=== PATIENT | female | born 1945 | race Caucasian/White ===

== ENCOUNTER 2016-10-05 09:23 | Outpatient (CLI) | payer MEDICARE, OTHER ==
--- NOTE | 2016-10-05 12:55 | XRAY Report ---
THREE-VIEW LEFT SHOULDER: 10/05/2016 CLINICAL INDICATION: Pain. FINDINGS: AP, oblique, scapular Y views of the left shoulder demonstrate no evidence of fracture or dislocation. Mild degenerative changes are present. No radiopaque foreign body is seen in the soft tissues. IMPRESSION: MILD DEGENERATIVE CHANGES. :9 JOB #: [id number] EXT JOB #:[id number]
--- NOTE | 2016-10-05 12:56 | XRAY Report ---
TWO-VIEW LEFT HUMERUS: 10/05/2016 CLINICAL INDICATION: Pain. FINDINGS: Frontal and lateral views of the left humerus demonstrate no evidence of fracture. No rad iopaque foreign body is seen in the soft tissues. IMPRESSION: NORMAL LEFT HUMERUS. JOB #: [id number] EXT JOB #:[id number]
== END 2016-10-05 09:24 | disposition home or self-care (01) ==
LOC: DI 09:23
PROVIDERS: ATTEND Physician Assistant Medical
DX: M19.012 Primary osteoarthritis, left shoulder (principal)

== ENCOUNTER 2016-12-21 08:31 | Outpatient (CLI) | payer MEDICARE, OTHER ==
[2016-12-21 09:00] LABS: BASOPHILS # (AUTO) 0.1 10^3/uL (0.0-0.1); BASOPHILS % (AUTO) 1.1 %; EOSINOPHILS # (AUTO) 0.3 10^3/uL (0.0-0.7); EOSINOPHILS % (AUTO) 3.1 %; HCT - HEMATOCRIT 38.4 % (37.0-47.0); HGB - HEMOGLOBIN 12.9 g/dL (12.0-16.0); LYMPHOCYTES # (AUTO) 1.4 10^3/uL (1.5-3.5); LYMPHOCYTES % (AUTO) 15.4 %; MEAN CORPUSCULAR HEMOGLOBIN 29.3 pg (27.0-31.0); MEAN CORPUSCULAR HGB CONC 33.5 g/dL (32.0-36.0); MEAN CORPUSCULAR VOLUME 87.3 fL (81.0-99.0); MEAN PLATELET VOLUME 7.3 fL (7.9-10.8); MONOCYTES # (AUTO) 0.6 10^3/uL (0.0-1.0); NEUTROPHILS # (AUTO) 6.6 10^3/uL (1.5-6.6); NEUTROPHILS % (AUTO) 73.4 %; RED CELL DISTRIBUTION WIDTH 12.6 % (12.0-15.0)
[2016-12-21 09:13] LABS: ALBUMIN/GLOBULIN RATIO 1.6 (1.0-2.2); BILIRUBIN,TOTAL 0.8 mg/dL (0.2-1.0); BUN - BLOOD UREA NITROGEN 25 mg/dL (6-20); CALCIUM 9.8 mg/dL (8.5-10.3); CARBON DIOXIDE - CO2 29 mmol/L (21-32); CHLORIDE 103 mmol/L (101-111); CHOL/HDL RATIO 3.6 (<4.4); CHOLESTEROL 196 mg/dL; CREATININE 0.8 mg/dL (0.4-1.0); GFR - MDRD 71 (>89); GLUCOSE 114 mg/dL (70-100); HDL CHOLESTEROL 54 mg/dL; LDL/HDL RATIO 2.3 (<4.4); POTASSIUM 3.7 mmol/L (3.5-5.0); SODIUM 139 mmol/L (135-145); TOTAL PROTEIN 6.8 g/dL (6.7-8.2); TRIGLYCERIDES 78 mg/dL; VLDL CHOLESTEROL 16 mg/dL
[2016-12-21 09:24] LABS: THYROID STIMULATING HORMONE 1.93 uIU/mL (0.34-5.60)
== END 2016-12-21 08:32 | disposition home or self-care (01) ==
LOC: LAB 08:31
PROVIDERS: ATTEND Physician Assistant Medical
DX: Z79.899 Other long term (current) drug therapy (principal); E55.9 Vitamin D deficiency, unspecified; M81.0 Age-related osteoporosis without current pathological fracture; Z86.39 Personal history of other endocrine, nutritional and metabolic disease; I10 Essential (primary) hypertension; Z11.59 Encounter for screening for other viral diseases; Z72.89 Other problems related to lifestyle
CPT/HCPCS: 36415; 80053; 80061; 82306; 83970; 84443; 85025; 86803

== ENCOUNTER 2016-12-30 10:08 | Outpatient (CLI) | payer MEDICARE, OTHER ==
--- NOTE | 2016-12-31 12:43 | Mammography Report ---
DIGITAL SCREENING MAMMOGRAM: 12/30/2016 CLINICAL INDICATION: A 71-year-old with family history of breast cancer for screening. COMPARISON: 12/2015, 12/2014, 10/2013, 12/2011, 12/2010, 12/2009 TECHNIQUE: Routine CC and MLO projections were obtained of the breasts. FINDINGS: The breasts again demonstrate heterogeneously dense fibroglandular parenchyma bilaterally. Coarse and punctate, typically benign calcifications are present. Intramammary lymph nodes are sta ble. No suspicious masses, clustered microcalcifications, or regions of architectural distortion are identified. IMPRESSION: BENIGN FINDINGS. RECOMMENDATION: Routine annual screening unless otherwise clinically indicated. BIRADS CATEGORY 2 - BENIGN FINDINGS. STANDARD QUALIFYING STATEMENTS 1. This examination was reviewed with the aid of Computer-Aided Detection (CAD). 2. A negative or benign imaging report should not delay biopsy if clinically suspicious findings are present. Consider surgical consultation if warranted. More than 5% of cancers are not identified by i maging. 3. Dense breasts may obscure an underlying neoplasm. JOB #: [id number] EXT JOB #:[id number]
== END 2016-12-30 10:09 | disposition home or self-care (01) ==
LOC: DI 10:08
PROVIDERS: ATTEND Physician Assistant Medical
DX: Z12.31 Encounter for screening mammogram for malignant neoplasm of breast (principal); Z80.3 Family history of malignant neoplasm of breast
CPT/HCPCS: 77067

== ENCOUNTER 2017-06-29 07:14 | Outpatient (CLI) | payer MEDICARE, OTHER ==
[2017-06-29 08:16] LABS: BILIRUBIN,URINE NEGATIVE (NEGATIVE); GLUCOSE, URINE (UA) NEGATIVE (NEGATIVE); KETONES,URINE (UA) NEGATIVE (NEGATIVE); LEUKOCYTE ESTERASE, URINE NEGATIVE (NEGATIVE); NITRITE,URINE NEGATIVE (NEGATIVE); OCCULT BLOOD,URINE NEGATIVE (NEGATIVE); PROTEIN,URINE NEGATIVE (NEGATIVE); UROBILINOGEN,URINE 0.2 (NORMAL) E.U./dL (NORMAL)
[2017-06-29 08:33] LABS: CLARITY,URINE CLEAR (CLEAR)
[2017-06-29 08:34] LABS: BACTERIA,URINE Rare /HPF (None Seen); RBC,URINE None Seen /HPF (0-5); SQUAMOUS EPITHELIAL CELL,UR RARE Squamous (<= Few)
--- NOTE | 2017-06-29 12:35 | Ultrasound Report ---
RETROPERITONEAL ULTRASOUND: 06/29/2017 HISTORY: Right ureterovesical junction stone in 2016, history of bilateral nephrolithiasis. Left lithotripsy 06/11/2017. TECHNIQUE: Real-time scanning by the lens marker with saved static images were reviewed. FINDINGS: Right kidney: 11.5 x 5.6 x 5.4 cm. There is an 1.5 cm in length right mid pole stone. There is a 5 mm in diameter right upper pole stone. There is a 2.2 x 1.3 cm inferior pole cyst. No evidence of obstruction, mass, or perinephric collection. Left kidney: 9.9 x 5.8 x 5.3 cm. No stones are seen. An 1.4 x 1.3 cm mid pole lateral cyst. No solid masses, perinephric collection, or hydronephrosis. Bilateral ureteral jets are seen. Prevoid bladder volume 49 mL. Postvoid bladder volume 27 mL. IMPRESSION: RIGHT NONOBSTRUCTING NEPHROLITHIASIS. SMALL BILATERAL RENAL CYSTS. SMALL POSTVOID RESIDUAL VOLUME. TD: 06/29/2017 12:34
== END 2017-06-29 07:15 | disposition home or self-care (01) ==
LOC: DI 07:14
PROVIDERS: ATTEND Physician Assistant
DX: N20.0 Calculus of kidney (principal); Q61.02 Congenital multiple renal cysts
CPT/HCPCS: 76770; 81001; 87086

== ENCOUNTER 2018-02-09 08:05 | Outpatient (CLI) | payer MEDICARE, OTHER ==
[2018-02-09 15:23] LABS: BASOPHILS % (AUTO) 0.4 %; EOSINOPHILS # (AUTO) 0.2 10^3/uL (0.0-0.7); EOSINOPHILS % (AUTO) 2.9 %; HGB - HEMOGLOBIN 13.6 g/dL (12.0-16.0); LYMPHOCYTES # (AUTO) 1.4 10^3/uL (1.5-3.5); LYMPHOCYTES % (AUTO) 17.3 %; MEAN CORPUSCULAR HEMOGLOBIN 29.4 pg (27.0-31.0); MEAN CORPUSCULAR HGB CONC 33.6 g/dL (32.0-36.0); MEAN CORPUSCULAR VOLUME 87.6 fL (81.0-99.0); MONOCYTES # (AUTO) 0.5 10^3/uL (0.0-1.0); MONOCYTES % (AUTO) 6.4 %; PLT - PLATELET COUNT 263 10^3/uL (130-450); RED BLOOD COUNT 4.63 10^6/uL (4.20-5.40); RED CELL DISTRIBUTION WIDTH 12.8 % (12.0-15.0); WHITE BLOOD COUNT 8.3 x10^3/uL (4.8-10.8)
[2018-02-09 15:39] LABS: ALBUMIN 4.1 g/dL (3.2-5.5); ALBUMIN/GLOBULIN RATIO 1.4 (1.0-2.2); ALKALINE PHOSPHATASE 80 IU/L (42-121); ALT ALANINE AMINOTRANSFERASE 20 IU/L (10-60); AST ASPARTATE AMINOTRANSFERASE 19 IU/L (10-42); BUN - BLOOD UREA NITROGEN 24 mg/dL (6-20); CALCIUM 9.6 mg/dL (8.5-10.3); CARBON DIOXIDE - CO2 28 mmol/L (21-32); CHLORIDE 98 mmol/L (101-111); CHOL/HDL RATIO 3.7 (<4.4); CHOLESTEROL 206 mg/dL; CREATININE 0.9 mg/dL (0.4-1.0); GFR - MDRD 62 (>89); GLUCOSE 95 mg/dL (70-100); HDL CHOLESTEROL 56 mg/dL; LDL CHOLESTEROL,CALCULATED 129 mg/dL; LDL/HDL RATIO 2.3 (<4.4); SODIUM 135 mmol/L (135-145); TOTAL PROTEIN 7.1 g/dL (6.7-8.2); VLDL CHOLESTEROL 21 mg/dL
[2018-02-09 16:14] LABS: HEMOGLOBIN A1C 0.53 g/dL; HEMOGLOBIN A1C % 5.4 % (4.6-6.2)
[2018-02-09 17:37] LABS: PLATELET ESTIMATE, MANUAL NORMAL (130-450,000) (NORMAL); PLATELET MORPHOLOGY NORMAL APPEARANCE (NORMAL); RBC MORPHOLOGY (MULTIPLE) NORMAL APPEARANCE (NORMAL)
== END 2018-02-09 23:59 | disposition home or self-care (01) ==
LOC: LAB.R 08:05
PROVIDERS: ATTEND Physician Assistant Medical
DX: Z79.899 Other long term (current) drug therapy (principal); E55.9 Vitamin D deficiency, unspecified; M81.0 Age-related osteoporosis without current pathological fracture; R73.9 Hyperglycemia, unspecified; I10 Essential (primary) hypertension
CPT/HCPCS: 80053; 80061; 82306; 83036; 83721; 85025

== ENCOUNTER 2018-12-05 02:24 | Emergency (ER) | payer MEDICARE, OTHER ==
--- NOTE | 2018-12-05 02:46 | ED Physician Documentation ---
PD HPI ABD PAIN - Stated complaint Stated Complaint: LEFT SIDE PAIN - Chief complaint Chief Complaint: Abd Pain - History obtained from History obtained from: Patient - History of Present Illness Timing - onset: How many hours ago (4) Timing - duration: Hours (4) Timing - details: Abrupt onset, Still present, Waxing and waning Quality: Cramping, Aching, Pain Location: LLQ Radiation: Left flank Improved by: No: Eating, Laying still, Position Worsened by: No: Eating, Moving, Position Associated symptoms: Nausea, Vomiting (couple of times). No: Fever, Diarrhea, Constipation, Dysuria Similar symptoms before: Diagnosis (she says feels similar to prior kidney stones. Has had several in the past.) Recently seen: Not recently seen Review of Systems Constitutional: denies: Fever, Chills Nose: denies: Rhinorrhea / runny nose, Congestion Throat: denies: Sore throat Respiratory: denies: Cough GI: reports: Abdominal Pain, Nausea, Vomiting. denies: Constipation, Diarrhea : denies: Dysuria, Frequency, Vaginal bleeding Skin: denies: Rash, Lesions Musculoskeletal: denies: Neck pain, Back pain Neurologic: denies: Focal weakness, Numbness, Near syncope PD PAST MEDICAL HISTORY - Past Medical History Cardiovascular: Hypertension Respiratory: None Endocrine/Autoimmune: None GI: None : Kidney stones HEENT: None Psych: None Musculoskeletal: None Derm: Psoriasis, Rosacea - Present Medications Home Medications: Ambulatory Orders Medication Instructions Recorded Confirmed Calcium Carbonate [Calcium] 500 mg PO DAILY 01/04/14 12/05/18 Cholecalciferol (Vitamin D3) 1,000 unit PO DAILY 01/04/14 12/05/18 [Vitamin D3] Losartan [Cozaar] 50 mg PO DAILY 01/04/14 12/05/18 Naproxen 500 mg PO BID #20 tablet 12/05/18 Ondansetron Odt [Zofran] 4 mg TL Q6H PRN #15 tablet 12/05/18 Oxycodone HCl/Acetaminophen 1 - 2 each PO Q6H PRN #20 tablet 12/05/18 [Percocet 5-325 mg Tablet] Tamsulosin [Flomax] 0.4 mg PO DAILY #5 capsule 12/05/18 - Allergies Allergies/Adverse Reactions: Allergies Allergy/AdvReac Type Severity Reaction Status Date / Time Sulfa (Sulfonamide AdvReac Rash Verified 12/05/18 02:35 Antibiotics) PD ED PE NORMAL - Vitals Vital signs reviewed: Yes - General General: Alert and oriented X 3, Well developed/nourished, Other (She appears uncomfortable in pain.) - HEENT HEENT: Pharynx benign - Neck Neck: Supple, no meningeal sign, No adenopathy - Cardiac Cardiac: RRR, No murmur - Respiratory Respiratory: Clear bilaterally - Abdomen Abdomen: Normal bowel sounds, Soft, Non distended, No organomegaly, Other (Some left-sided tenderness but no real guarding or percussion tenderness. There is some left CVA tenderness.) - Back Back: No spinal TTP - Derm Derm: Normal color, Warm and dry, No rash - Extremities Extremities: No edema, No calf tenderness / cord - Neuro Neuro: Alert and oriented X 3, No motor deficit, Normal speech Results - Vitals Vitals: Oxygen O2 Source Room air - Labs Labs: Laboratory Tests 12/05/18 12/05/18 03:25 03:25 WBC 12.0 H RBC 4.55 Hgb 13.4 Hct 39.8 MCV 87.5 MCH 29.5 MCHC 33.7 RDW 11.9 L Plt Count 228 MPV 9.3 Neut # (Auto) 10.2 H Lymph # (Auto) 1.0 L Eaton # (Auto) 0.6 Eos # (Auto) 0.1 Baso # (Auto) 0.1 Absolute Nucleated RBC 0.00 Nucleated RBC % 0.0 Sodium 141 Potassium 4.4 Chloride 105 Carbon Dioxide 26 Anion Gap 10.0 BUN 26 H Creatinine 1.0 Estimated GFR (MDRD) 54 L Glucose 149 H Calcium 10.2 Total Bilirubin 0.7 AST 19 ALT 16 Alkaline Phosphatase 83 Total Protein 7.1 Albumin 4.1 Globulin 3.0 Albumin/Globulin Ratio 1.4 Lipase 49 PD MEDICAL DECISION MAKING - ED course Complexity details: reviewed results (normal tests. No imaging done, presumed stone.), re-evaluated patient (She is feeling much improved with medications.), considered differential (Reasonable to assume a kidney stone being passed.), d/w patient Departure - Departure Disposition: 01 Home, Self Care Clinical Impression: Acute left flank pain, Renal colic Condition: Stable Record reviewed to determine appropriate education?: Yes Instructions: ED Stone Renal W Colic Follow-Up: Reena Mccormick ARNP, DYE AUTOMATION OPERATOR-C [Primary Care Provider] - Prescriptions: Naproxen 500 mg PO BID #20 tablet Ondansetron Odt [Zofran] 4 mg TL Q6H PRN #15 tablet PRN Reason: Nausea / Vomiting Oxycodone HCl/Acetaminophen [Percocet 5-325 mg Tablet] 1 - 2 each PO Q6H PRN #20 tablet PRN Reason: pain Tamsulosin [Flomax] 0.4 mg PO DAILY #5 capsule Comments: Stay well-hydrated. Use an anti-inflammatory such as naproxen twice daily with food for the next several days to week or so. Add Tylenol or Percocet if needed for pain. Ondansetron if needed for nausea. Presume this is a small kidney stone that you are passing. Recheck if not improved over the next 2 to 3 days or if not well symptom controlled with medication. Discharge Date/Time: 12/05/18 04:44
[2018-12-05] MEDS ORDERED: ONDANSETRON 4 MG/2 ML VIAL IVP STA (02:59)
[2018-12-05] MEDS ORDERED: HYDROmorphone 2 MG/ML VIAL IVP STA (02:59)
[2018-12-05] MEDS ORDERED: SODIUM CHLORIDE 0.9% 1,000 ML IV ONE (02:59)
[2018-12-05] MEDS ORDERED: KETOROLAC 30 MG/ML VIAL IVP STA (02:59)
[2018-12-05 03:37] LABS: BASOPHILS # (AUTO) 0.1 10^3/uL (0.0-0.1); BASOPHILS % (AUTO) 0.4 %; EOSINOPHILS # (AUTO) 0.1 10^3/uL (0.0-0.7); EOSINOPHILS % (AUTO) 0.8 %; HGB - HEMOGLOBIN 13.4 g/dL (12.0-16.0); LYMPHOCYTES % (AUTO) 7.9 %; MEAN CORPUSCULAR HEMOGLOBIN 29.5 pg (27.0-31.0); MEAN CORPUSCULAR HGB CONC 33.7 g/dL (32.0-36.0); MEAN CORPUSCULAR VOLUME 87.5 fL (81.0-99.0); MEAN PLATELET VOLUME 9.3 fL (7.9-10.8); MONOCYTES # (AUTO) 0.6 10^3/uL (0.0-1.0); MONOCYTES % (AUTO) 5.2 %; NEUTROPHILS # (AUTO) 10.2 10^3/uL (1.5-6.6); NEUTROPHILS % (AUTO) 85.3 %; PLT - PLATELET COUNT 228 10^3/uL (130-450); RED BLOOD COUNT 4.55 10^6/uL (4.20-5.40); RED CELL DISTRIBUTION WIDTH 11.9 % (12.0-15.0)
[2018-12-05 03:50] LABS: ALBUMIN 4.1 g/dL (3.2-5.5); ALBUMIN/GLOBULIN RATIO 1.4 (1.0-2.2); BILIRUBIN,TOTAL 0.7 mg/dL (0.2-1.0); CALCIUM 10.2 mg/dL (8.5-10.3); TOTAL PROTEIN 7.1 g/dL (6.7-8.2)
[2018-12-05] MEDS ORDERED: ONDANSETRON ODT 4 MG Prepack 2 TL PRN (04:19)
[2018-12-05] MEDS ORDERED: oxyCODONE/ACET 5/325 Prepack 4 PO STA (04:19)
[2018-12-05 04:20] VITALS: BP 124/78
== END 2018-12-05 04:44 | disposition home or self-care (01) ==
LOC: ED 02:24
DX: N23 Unspecified renal colic (principal); I10 Essential (primary) hypertension; Z87.442 Personal history of urinary calculi
CPT/HCPCS: 36415; 80053; 83690; 85025; 96361; 96374; 99284; J1170

== ENCOUNTER 2018-12-06 21:02 | Emergency (ER) | payer MEDICARE, OTHER ==
--- NOTE | 2018-12-06 21:21 | ED Physician Documentation ---
PD HPI ABD PAIN - Stated complaint Stated Complaint: BK PX/VOMITING - Chief complaint Chief Complaint: Abd Pain - History obtained from History obtained from: Patient - History of Present Illness Timing - onset: How many days ago (2-3) Timing - details: Abrupt onset, Still present (She had left flank to abdominal pain consistent with prior kidney stones. She was seen yesterday in the ER and given some pain medicines and then prescriptions for Zofran and Percocet. She states she was having nausea and vomiting even prior to taking these tablets from the pressure in the kidney and the pain in general.), Waxing and waning Quality: Cramping, Aching, Pain Location: LLQ (She states in the last 2 to 3 hours the pain had moved from more primarily in the back to now both back and lower abdominal area. It is associated with nausea and vomiting. She tried some pain medicines she was prescribed yesterday but states she had emesis of them without really absorption time. Still hurting quite badly and so here for evaluation.) Radiation: Left flank Improved by: No: Laying still, Vomiting Worsened by: Moving. No: Breathing Associated symptoms: Nausea, Vomiting. No: Fever, Hematemesis, Diarrhea, Weight loss Similar symptoms before: Diagnosis (kidney stones) Recently seen: Emergency Dept (yesterday for same, with less pain at that time.) Review of Systems Unable to obtain: Other (less conversant due to abd pain) Constitutional: denies: Fever, Chills, Myalgias Nose: denies: Rhinorrhea / runny nose, Congestion Cardiac: denies: Chest pain / pressure GI: reports: Abdominal Pain, Nausea, Vomiting. denies: Constipation, Diarrhea : denies: Dysuria, Frequency Skin: denies: Rash, Lesions PD PAST MEDICAL HISTORY - Past Medical History Cardiovascular: Hypertension Respiratory: None Endocrine/Autoimmune: None GI: None : Kidney stones HEENT: None Psych: None Musculoskeletal: None Derm: Psoriasis, Rosacea - Present Medications Home Medications: Ambulatory Orders Medication Instructions Recorded Confirmed Calcium Carbonate [Calcium] 500 mg PO DAILY 01/04/14 12/05/18 Cholecalciferol (Vitamin D3) 1,000 unit PO DAILY 01/04/14 12/05/18 [Vitamin D3] Losartan [Cozaar] 50 mg PO DAILY 01/04/14 12/05/18 Ondansetron Odt [Zofran] 4 mg TL Q6H PRN #15 tablet 12/05/18 Oxycodone HCl/Acetaminophen 1 - 2 each PO Q6H PRN #20 tablet 12/05/18 [Percocet 5-325 mg Tablet] RX: Naproxen 500 mg PO BID #20 tablet 12/05/18 Tamsulosin [Flomax] 0.4 mg PO DAILY #5 capsule 12/05/18 Hydrocodone/Acetaminophen 1 each PO Q4H PRN #20 tablet 12/06/18 [Hydrocodon-Acetaminoph 7.5-325] - Allergies Allergies/Adverse Reactions: Allergies Allergy/AdvReac Type Severity Reaction Status Date / Time Sulfa (Sulfonamide AdvReac Rash Verified 12/06/18 21:17 Antibiotics) - Social History Does the pt smoke?: No Smoking Status: Never smoker PD ED PE NORMAL - Vitals Vital signs reviewed: Yes - General General: Alert and oriented X 3, Well developed/nourished, Other (Appears very uncomfortable and pale and holding left side of her abdomen. She is awake and conversant.) - HEENT HEENT: Pharynx benign - Neck Neck: Supple, no meningeal sign, No adenopathy - Cardiac Cardiac: RRR, No murmur - Respiratory Respiratory: Clear bilaterally - Abdomen Abdomen: Soft, Non distended, No organomegaly, Other (There is tenderness of the left lower abdomen and left mid abdomen and also left CVA tenderness. There is no guarding of the areas..). No: Normal bowel sounds (diminished) - Female Female : Deferred - Rectal Rectal: Deferred - Derm Derm: Normal color, Warm and dry - Extremities Extremities: No tenderness to palpate, Normal ROM s pain - Neuro Neuro: Alert and oriented X 3, No motor deficit, No sensory deficit Results - Vitals Vitals: Vital Signs - 24 hr 12/06/18 12/06/18 12/06/18 21:16 21:55 22:21 Temperature 36.3 C L Heart Rate 78 76 67 Respiratory 22 20 15 Rate Blood Pressure 130/78 140/68 H 144/77 H O2 Saturation 100 98 100 12/06/18 12/06/18 12/07/18 22:47 23:21 00:05 Temperature Heart Rate 71 75 73 Respiratory 16 17 16 Rate Blood Pressure 156/72 H 137/65 H 130/65 O2 Saturation 98 98 96 Oxygen O2 Source Room air - Rads (name of study) KUB CT Radiology: Prelim report reviewed, EMP read contemporaneously (6 mm stone in the proximal left ureter with only mild hydronephrosis. No other acute processes seen.), See rad report PD MEDICAL DECISION MAKING - ED course Complexity details: reviewed results, re-evaluated patient (Improved with IV pain medications as well as antiemetic and lidocaine. She is still having some pain in the area. She was given a little bit more pain medicine and antiemetics. This point she feels comfortable going home to rest.), considered differential, d/w patient ED course: It was hard to tell if she has have nausea and vomiting because of the pain itself or from the pain medication she received at the clinic. We can treat to a different pain medicine in case it was the oxycodone augmenting the nausea and vomiting. She does however have a large enough stone that we will consider lithotripsy for it. Departure - Departure Disposition: 01 Home, Self Care Clinical Impression: Left sided abdominal pain, Kidney stone on left side Condition: Stable Record reviewed to determine appropriate education?: Yes Instructions: ED Stone Renal W Colic Follow-Up: Reena Mccormick ARNP, SL[employer] DEPILER OPERATOR-C [Primary Care Provider] - Jose Nicole MD [Provider Admit Priv/Credential] - Prescriptions: Hydrocodone/Acetaminophen [Hydrocodon-Acetaminoph 7.5-325] 1 each PO Q4H PRN #20 tablet PRN Reason: Pain Comments: Ibuprofen or naproxen twice daily with food. Continue the previous tamsulosin daily. Ondansetron if needed for nausea and take it 20 minutes or so before the pain medicines. You could try hydrocodone instead of the oxycodone for the pain medicine and see if you are less nauseated with it. The nausea and vomiting may also have just been from the pain as well. Follow-up with urology. There is one who has office hours in [place]. Call for an appointment. Return if worse pain again despite the above medications. Discharge Date/Time: 12/07/18 00:18
[2018-12-06] MEDS ORDERED: ONDANSETRON 4 MG/2 ML VIAL IVP STA (21:32)
[2018-12-06] MEDS ORDERED: KETOROLAC 30 MG/ML VIAL IVP STA (21:32)
[2018-12-06] MEDS ORDERED: LIDOCAINE-MPF 2% 6 ML in SODIUM CHLORIDE 0.9% 50 ML IV STA (21:32)
[2018-12-06] MEDS ORDERED: MORPHINE 10 MG/ML VIAL IVP STA (21:34)
[2018-12-06] MEDS ORDERED: fentaNYL 100 MCG/2 ML VIAL IVP STA (23:04)
[2018-12-06] MEDS ORDERED: DEXAMETHASONE 10 MG/ML VIAL IVP STA (23:05)
[2018-12-06] MEDS ORDERED: PROMETHAZINE INJ 12.5 MG in SODIUM CHLORIDE 0.9% 50 ML IV STA (23:05)
[2018-12-06] MEDS ORDERED: ACETAMINOPHEN 1,000 MG/100 ML 100 ML IV STA (23:05)
--- NOTE | 2018-12-06 23:09 | CT Report ---
Reason: left flank/abd pain, h/o stones Procedure Date: 12/06/2018 Accession Number: [id number] / [id number] Procedure: CT - Abdomen/Pelvis WO CPT Code: FULL RESULT: EXAM: CT ABDOMEN AND PELVIS (CT KUB) EXAM DATE: 12/06/2018 10:16 PM CLINICAL HISTORY: Left-sided abdominal and flank pain. History of kidney stones. COMPARISONS: ABDOMEN/PELVIS W/O 10/29/2015 8:24 AM. TECHNIQUE: Routine axial helical CT imaging was performed through the abdomen and pelvis without IV contrast. Reconstructions: Coronal and sagittal. In accordance with CT protocol optimization, one or more of the following dose reduction techniques were utilized for this exam: automated exposure control, adjustment of mA and/or KV based on patient size, or use of iterative reconstructive technique. FINDINGS: Right Kidney/Ureter: There are two intrarenal stones within the right mid kidney. These measure up to 7 mm in maximal diameter. The dominant stone is similar to the prior study. There is a new anteriorly located right lower kidney stone. Incipient right lower kidney stone also has developed since the prior study. There is an exophytic abnormality arising from the lateral portion of the right lower kidney, increased in size from the prior study. This measures 20 HU in density, difficult to characterize on this exam. This lesion measures 2.1 cm (image 82 series 5). Left Kidney/Ureter: Contour deformity within the left lower kidney is noted laterally measuring 2.7 x 1.7 cm (image 76 series 5). Heterogeneous low-density abnormality is noted at this location. There are three tiny incipient stones within the left lower kidney. No left-sided hydronephrosis is demonstrated. There is a left proximal ureteral stone, measuring 6.4 mm (image 45 series 7). This measures 659 Hounsfield units in density. Abdominal Solid Organs: Small heterogeneous low-density lesion is seen within the anterior portion of liver segment-8/4A, better seen compared to the prior study. This measures 1.3 cm (image 36 series 5). This is difficult to fully characterize. There are at least two smaller similar lesions seen within the left hepatic lobe, segment-2 and 3 (image 56 series 5). These measure up to 1.7 cm. A few additional subtle subcentimeter low-density abnormalities also suspected within the right hepatic lobe. These lesions are difficult to fully characterize on this noncontrast study. There are multiple gallstones. No definite evidence of acute cholecystitis noted on this examination. Phrygian cap is present. Bowel: Abnormal thickening as well as pericolonic stranding seen involving the distal portion of the ascending colon, transverse colon, as well as the descending colon. Sigmoid colon appears to be spared. There is a small amount of liquid stool and fecal matter within the colon. Appendix: Normal. Lymph Nodes: No definite pathologic lymphadenopathy. Fluid: No significant ascites. Vasculature: Normal caliber aorta. Pelvis: No bladder stones. Visualized pelvic organs are without significant abnormality within the confines of a noncontrast exam. Bones: No definite suspicious bony lesions demonstrated. However, bones are at least moderately osteopenic. This reduces exam sensitivity and specificity for detection of subtle bony lesions and/or fractures. Lower Chest: No significant lung base consolidation or effusion. IMPRESSION: 1. There is a 6.4 mm left proximal ureteral stone without significant hydronephrosis. 2. There are three incipient stones within the left lower kidney. There are two stones within the right mid and lower kidney measuring up to 7 mm. Incipient right lower kidney stone also noted. 3. Bilateral indeterminate renal lesions arising from the lower pole, for which further assessment recommended with a nonemergent outpatient ultrasound. 4. Colitis involving the distal half of the ascending colon, transverse colon, as well as the descending colon. This is probably infectious in etiology. 5. Gallstones without acute cholecystitis noted. [facility]
[2018-12-06] MEDS ORDERED: HYDROcod/ACET 5/325 Prepack 4 PO STA (23:12)
[2018-12-06] MEDS ORDERED: PROCHLORPERAZINE 10 MG/2 ML VIAL IVP STA (23:33)
[2018-12-07 00:07] VITALS: BP 130/65
== END 2018-12-07 00:18 | disposition home or self-care (01) ==
LOC: ED 21:02
DX: N20.2 Calculus of kidney with calculus of ureter (principal); R11.2 Nausea with vomiting, unspecified; I10 Essential (primary) hypertension; Z87.442 Personal history of urinary calculi
CPT/HCPCS: 74176; 96374; 96375; 99284; J0131; J7040

== ENCOUNTER 2018-12-31 09:26 | Emergency (ER) | payer MEDICARE, OTHER ==
[2018-12-31] MEDS ORDERED: SODIUM CHLORIDE 0.9% 1,000 ML IV ONE (09:59)
[2018-12-31] MEDS ORDERED: ONDANSETRON 4 MG/2 ML VIAL IVP STA (09:59)
[2018-12-31 10:00] LABS: BILIRUBIN,URINE NEGATIVE (NEGATIVE); GLUCOSE, URINE (UA) NEGATIVE (NEGATIVE); KETONES,URINE (UA) 15 mg/dL (NEGATIVE); LEUKOCYTE ESTERASE, URINE SMALL (NEGATIVE); NITRITE,URINE NEGATIVE (NEGATIVE); OCCULT BLOOD,URINE TRACE-INTA (NEGATIVE); PROTEIN,URINE NEGATIVE (NEGATIVE); UROBILINOGEN,URINE 0.2 (NORMAL) E.U./dL (NORMAL)
[2018-12-31 10:02] LABS: CLARITY,URINE HAZY (CLEAR)
[2018-12-31 10:11] LABS: BASOPHILS % (AUTO) 0.5 %; EOSINOPHILS # (AUTO) 0.2 10^3/uL (0.0-0.7); EOSINOPHILS % (AUTO) 3.3 %; HGB - HEMOGLOBIN 13.6 g/dL (12.0-16.0); LYMPHOCYTES # (AUTO) 1.1 10^3/uL (1.5-3.5); LYMPHOCYTES % (AUTO) 15.3 %; MEAN CORPUSCULAR HEMOGLOBIN 28.8 pg (27.0-31.0); MEAN CORPUSCULAR HGB CONC 32.5 g/dL (32.0-36.0); MEAN CORPUSCULAR VOLUME 88.6 fL (81.0-99.0); MONOCYTES # (AUTO) 0.5 10^3/uL (0.0-1.0); MONOCYTES % (AUTO) 6.8 %; NEUTROPHILS # (AUTO) 5.4 10^3/uL (1.5-6.6); NEUTROPHILS % (AUTO) 73.7 %; PLT - PLATELET COUNT 267 10^3/uL (130-450); RED BLOOD COUNT 4.73 10^6/uL (4.20-5.40); RED CELL DISTRIBUTION WIDTH 12.1 % (12.0-15.0); WHITE BLOOD COUNT 7.4 x10^3/uL (4.8-10.8)
--- NOTE | 2018-12-31 10:15 | ED Physician Documentation ---
History of Present Illness - Stated complaint Stated Complaint: FEMALE /BACK PX - Chief complaint Chief Complaint: General - History obtained from History obtained from: Patient, Family - History of Present Illness Timing: Yesterday Pain level max: 8 Pain level now: 6 - Additonal information Additional information: 73-year-old female with a long history of renal and ureteral stones. States started having left flank pain again last night. Currently feels better. Some nausea but no vomiting. No fevers. Has not seen a urologist yet. Nothing makes it better or worse. Review of Systems Constitutional: denies: Fever, Chills Throat: denies: Sore throat Cardiac: denies: Chest pain / pressure Respiratory: denies: Cough GI: denies: Vomiting, Diarrhea : denies: Dysuria, Frequency, Hesitancy Skin: denies: Rash Musculoskeletal: denies: Neck pain, Back pain Neurologic: denies: Headache PD PAST MEDICAL HISTORY - Past Medical History Cardiovascular: Hypertension Respiratory: None Endocrine/Autoimmune: None GI: None : Kidney stones HEENT: None Psych: None Musculoskeletal: None Derm: Psoriasis, Rosacea - Present Medications Home Medications: Ambulatory Orders Medication Instructions Recorded Confirmed Calcium Carbonate [Calcium] 500 mg PO DAILY 01/04/14 12/31/18 Cholecalciferol (Vitamin D3) 1,000 unit PO DAILY 01/04/14 12/31/18 [Vitamin D3] Losartan [Cozaar] 50 mg PO DAILY 01/04/14 12/31/18 Tamsulosin [Flomax] 0.4 mg PO DAILY #5 capsule 12/05/18 12/31/18 Ciprofloxacin HCl [Cipro] 500 mg PO BID #20 tablet 12/31/18 Tamsulosin [Flomax] 0.4 mg PO DAILY #10 capsule 12/31/18 oxyCODONE [Roxicodone] 5 - 10 mg PO Q6H PRN #14 tablet 12/31/18 traMADol [Ultram] 50 mg PO Q6H PRN #20 tablet 12/31/18 - Allergies Allergies/Adverse Reactions: Allergies Allergy/AdvReac Type Severity Reaction Status Date / Time Sulfa (Sulfonamide AdvReac Rash Verified 12/06/18 21:17 Antibiotics) - Social History Does the pt smoke?: No Smoking Status: Never smoker Does the pt drink ETOH?: No Does the pt have substance abuse?: No - POLST Patient has POLST: No PD ED PE NORMAL - Vitals Vital signs reviewed: Yes - General General: Alert and oriented X 3, No acute distress - HEENT HEENT: Moist mucous membranes - Neck Neck: Supple, no meningeal sign - Cardiac Cardiac: RRR - Respiratory Respiratory: No respiratory distress, Clear bilaterally - Abdomen Abdomen: Soft, Non tender, Non distended - Back Back: No CVA TTP, No spinal TTP - Derm Derm: Warm and dry - Neuro Neuro: Alert and oriented X 3 - Psych Psych: Normal mood, Normal affect Results - Vitals Vitals: Vital Signs - 24 hr 12/31/18 12/31/18 12/31/18 09:31 10:05 12:50 Temperature 36.4 C L Heart Rate 80 68 63 Respiratory 14 18 18 Rate Blood Pressure 134/79 H 108/73 117/72 O2 Saturation 100 97 98 Oxygen O2 Source Room air - Labs Labs: Laboratory Tests 12/31/18 12/31/18 12/31/18 09:40 09:45 09:45 WBC 7.4 RBC 4.73 Hgb 13.6 Hct 41.9 MCV 88.6 MCH 28.8 MCHC 32.5 RDW 12.1 Plt Count 267 MPV 9.0 Neut # (Auto) 5.4 Lymph # (Auto) 1.1 L Lea # (Auto) 0.5 Eos # (Auto) 0.2 Baso # (Auto) 0.0 Absolute Nucleated RBC 0.00 Nucleated RBC % 0.0 Sodium 143 Potassium 3.7 Chloride 107 Carbon Dioxide 26 Anion Gap 10.0 BUN 22 H Creatinine 1.1 H Estimated GFR (MDRD) 49 L Glucose 124 H Calcium 9.7 Total Bilirubin 0.9 AST 19 ALT 18 Alkaline Phosphatase 77 Total Protein 7.7 Albumin 4.3 Globulin 3.4 Albumin/Globulin Ratio 1.3 Lipase 42 Urine Color YELLOW Urine Clarity HAZY Urine pH 6.0 Ur Specific [place] 1.010 Urine Protein NEGATIVE Urine Glucose (UA) NEGATIVE Urine Ketones 15 H Urine Occult Blood TRACE-INTA Urine Nitrite NEGATIVE Urine Bilirubin NEGATIVE Urine Urobilinogen 0.2 (NORMAL) Ur Leukocyte Esterase SMALL H Urine RBC 0-5 Urine WBC 0-3 Urine WBC Clumps Ur Squamous Epith Cells MOD Squamous H Urine Bacteria Moderate H Ur Microscopic Review INDICATED Urine Culture Comments NOT INDICATED 12/31/18 11:12 WBC RBC Hgb Hct MCV MCH MCHC RDW Plt Count MPV Neut # (Auto) Lymph # (Auto) Lea # (Auto) Eos # (Auto) Baso # (Auto) Absolute Nucleated RBC Nucleated RBC % Sodium Potassium Chloride Carbon Dioxide Anion Gap BUN Creatinine Estimated GFR (MDRD) Glucose Calcium Total Bilirubin AST ALT Alkaline Phosphatase Total Protein Albumin Globulin Albumin/Globulin Ratio Lipase Urine Color YELLOW Urine Clarity CLEAR Urine pH 6.0 Ur Specific [place] 1.015 Urine Protein NEGATIVE Urine Glucose (UA) NEGATIVE Urine Ketones NEGATIVE Urine Occult Blood SMALL H Urine Nitrite NEGATIVE Urine Bilirubin NEGATIVE Urine Urobilinogen 0.2 (NORMAL) Ur Leukocyte Esterase TRACE H Urine RBC 0-5 Urine WBC 6-10 H Urine WBC Clumps PRESENT Ur Squamous Epith Cells NONE SEEN Urine Bacteria Rare Ur Microscopic Review INDICATED Urine Culture Comments INDICATED - Rads (name of study) CT abd/pelvis Radiology: Prelim report reviewed, EMP read contemporaneously, See rad report (Bilateral renal stones are present, with interval development of mild left sided hydroureteronephrosis secondary to round stone at the left UVJ measuring 4.6 mm. Additional bilateral renal pelvic stones are seen, with right nonobstructing stone measuring up to 7.8 mm. 2. Interval resolution of previously noted colitis. Residual diverticulosis otherwise seen. 3. Stable appearance of hypodensities noted in the liver and kidneys. Follow-up recommended for previously described exophytic renal lesions. 4. Mild bony dege nerative changes seen. ) PD MEDICAL DECISION MAKING - ED course Complexity details: reviewed results, re-evaluated patient, considered differential, d/w patient ED course: 73-year-old female with a left UVJ stone. She has a UTI as well. No fever. No leukocytosis. Given Rocephin IV. Discussed the case with urology, Dr. Hernandez who will see the patient tomorrow. She will return if she worsens. Patient counseled regarding signs and symptoms for which I believe and urgent re-evaluation would be necessary. Patient with good understanding of and agreement to plan and is comfortable going home at this time This document was made in part using voice recognition software. While efforts are made to proofread this document, sound alike and grammatical errors may occur. Departure - Departure Disposition: 01 Home, Self Care Clinical Impression: Kidney stone on left side UTI (urinary tract infection) Qualifiers: Urinary tract infection type: acute cystitis Hematuria presence: without hematuria Qualified Code(s): N30.00 - Acute cystitis without hematuria Condition: Good Instructions: ED UTI Cystitis Female, ED Stone Renal W Colic Follow-Up: Román Hernandez MD [Physician No Access] - Tomorrow Prescriptions: Ciprofloxacin HCl [Cipro] 500 mg PO BID #20 tablet oxyCODONE [Roxicodone] 5 - 10 mg PO Q6H PRN #14 tablet PRN Reason: Abdominal Pain Tamsulosin [Flomax] 0.4 mg PO DAILY #10 capsule traMADol [Ultram] 50 mg PO Q6H PRN #20 tablet PRN Reason: Abdominal Pain Comments: Return if you worsen. Follow-up with Dr. Hernandez in the morning. Call his office first thing in the morning. I spoke with him tonight. Do not eat or drink after midnight tonight. Go to [facility] ER if you develop fevers, vomiting or uncontrolled pain as he is [employer] there tonight. Take the tramadol every 6 hours around the clock with 650mg of tylenol. Do not drink alcohol or drive while on narcotic pain medicine. Note that many narcotic pain relievers also contain tylenol/acetaminophen. Please ensure that your total dose of acetaminophen from all sources does not exceed 3 grams (3000mg) per day. You may constipated on this medication, take a stool softener such as "Colace" twice a day while you are on it. Also recommend a [id number]-icn-ufgcpac laxative such as senna or MiraLAX any day that you do not have a bowel movement. If you received narcotic pain medication in the emergency department, do not drive or operate machinery for the next 24 hours. Discharge Date/Time: 12/31/18 13:36
[2018-12-31 10:24] LABS: BACTERIA,URINE Moderate /HPF (None Seen); RBC,URINE 0-5 /HPF (0-5); SQUAMOUS EPITHELIAL CELL,UR MOD Squamous (<= Few)
[2018-12-31 10:27] LABS: ALBUMIN 4.3 g/dL (3.2-5.5); ALBUMIN/GLOBULIN RATIO 1.3 (1.0-2.2); BILIRUBIN,TOTAL 0.9 mg/dL (0.2-1.0); CALCIUM 9.7 mg/dL (8.5-10.3); CREATININE 1.1 mg/dL (0.4-1.0); TOTAL PROTEIN 7.7 g/dL (6.7-8.2)
[2018-12-31] MEDS ORDERED: IOVERSOL 320 100 ML VIAL IVP ONE ×2 (11:03→11:06)
[2018-12-31 11:36] LABS: BILIRUBIN,URINE NEGATIVE (NEGATIVE); GLUCOSE, URINE (UA) NEGATIVE (NEGATIVE); KETONES,URINE (UA) NEGATIVE (NEGATIVE); LEUKOCYTE ESTERASE, URINE TRACE (NEGATIVE); NITRITE,URINE NEGATIVE (NEGATIVE); OCCULT BLOOD,URINE SMALL (NEGATIVE); PROTEIN,URINE NEGATIVE (NEGATIVE); UROBILINOGEN,URINE 0.2 (NORMAL) E.U./dL (NORMAL)
[2018-12-31 11:45] LABS: CLARITY,URINE CLEAR (CLEAR)
[2018-12-31 11:56] LABS: BACTERIA,URINE Rare /HPF (None Seen); RBC,URINE 0-5 /HPF (0-5); SQUAMOUS EPITHELIAL CELL,UR NONE SEEN (<= Few); WBC CLUMPS,URINE PRESENT
--- NOTE | 2018-12-31 12:17 | CT Report ---
Reason: L sided abd pain Procedure Date: 12/31/2018 Accession Number: [id number] / [id number] Procedure: CT - Abdomen/Pelvis W CPT Code: FULL RESULT: EXAM: CT ABDOMEN AND PELVIS EXAM DATE: 12/31/2018 11:14 AM. CLINICAL HISTORY: Left-sided abdominal pain. COMPARISONS: ABDOMEN/PELVIS W/O 12/06/2018 10:09 PM ABD/PEL 01/10/2008 11:55 AM. TECHNIQUE: Routine helical CT imaging was performed through the abdomen and pelvis. IV contrast: OPTI 320 90ML. Enteric contrast: No. Reconstructions: Coronal and sagittal. In accordance with CT protocol optimization, one or more of the following dose reduction techniques were utilized for this exam: automated exposure control, adjustment of mA and/or KV based on patient size, or use of iterative reconstructive technique. FINDINGS: Lung Bases: Patchy atelectatic changes seen at the lung bases. Liver: Stable hypoattenuation in the liver, possibly cysts. No obvious enhancing mass noted. Gallbladder/Bile Ducts: Stable cholelithiasis. No gross evidence of acute cholecystitis seen. Spleen: Normal. Pancreas: Normal. Adrenal Glands: Normal. Kidneys: Bilateral renal stones are again noted, with stable appearance of exophytic possible cystic lesion in the right lower pole. There is newly developed left mild hydroureteronephrosis, secondary to a round stone at the left UVJ, measuring 4.6 mm. Largest nonobstructing stone noted about the right kidney is noted to measure 7.8 mm. Peritoneal Cavity/Bowel: There is colonic diverticulosis noted without evidence of acute diverticulitis. No free fluid, free air or adenopathy. No masses or acute inflammatory process. Appendix is not well seen. Previously noted colitis has resolved. Pelvic Organs: Normal. The bladder and visualized pelvic organs are within normal limits. Vasculature: No aneurysms or other significant abnormality. Bones: Mild bony degenerative changes seen. Other: None. IMPRESSION: 1. Bilateral renal stones are present, with interval development of mild left sided hydroureteronephrosis secondary to round stone at the left UVJ measuring 4.6 mm. Additional bilateral renal pelvic stones are seen, with right nonobstructing stone measuring up to 7.8 mm. 2. Interval resolution of previously noted colitis. Residual diverticulosis otherwise seen. 3. Stable appearance of hypodensities noted in the liver and kidneys. Follow-up recommended for previously described exophytic renal lesions. 4. Mild bony degenerative changes seen. RADIA
[2018-12-31] MEDS ORDERED: cefTRIAXone 1 GM VIAL IVP STA (12:38)
[2018-12-31 12:51] VITALS: BP 117/72
== END 2018-12-31 13:36 | disposition home or self-care (01) ==
LOC: ED 09:26
DX: N13.2 Hydronephrosis with renal and ureteral calculous obstruction (principal); Z87.442 Personal history of urinary calculi; N30.00 Acute cystitis without hematuria; I10 Essential (primary) hypertension
CPT/HCPCS: 36415; 51701; 74177; 80053; 81001; 83690; 85025; 87086; 96361; 96374; 96375; 99284; Q9967; 81003; 82247; 82248

== ENCOUNTER 2019-01-19 07:58 | Outpatient (CLI) | payer MEDICARE, OTHER ==
--- NOTE | 2019-01-19 11:41 | Mammography Report ---
Reason: ROUTINE MAMMO Procedure Date: 01/19/2019 Accession Number: [id number] / [id number] Procedure: MGS - Screening Mammo Dig Bilat CPT Code: FULL RESULT: EXAM: Screening Mammo Dig Bilat DATE: 01/19/2019 8:27 AM CLINICAL HISTORY: Routine screening. Mother with breast cancer. TECHNIQUE: (B) - Bilateral CC and MLO views were obtained. COMPARISON: 12/30/2016, 12/30/2015, 01/08/2015, 11/27/2013, 10/28/2013, 01/25/2012, 01/06/2011 and 01/14/2010 PARENCHYMAL PATTERN: (D) - The breasts demonstrate heterogeneously dense fibroglandular parenchyma bilaterally. FINDINGS: No significant interval change. There are no suspicious masses, calcifications, or areas of distortion. IMPRESSION: Negative examination. BI-RADS category 1. RECOMMENDATION: (ANNUAL) - Recommend routine annual screening mammography. BI-RADS CATEGORY: (1) - Negative. STANDARD QUALIFYING STATEMENTS: 1. This examination was not reviewed with the aid of Computer-Aided Detection (CAD). 2. A negative or benign imaging report should not preclude biopsy if clinically suspicious findings are present. 3. Dense breasts may obscure an underlying neoplasm. 4. This examination was reviewed without the aid of 3D breast imaging (tomosynthesis).
== END 2019-01-19 07:59 | disposition home or self-care (01) ==
LOC: DI.S 07:58
DX: Z12.31 Encounter for screening mammogram for malignant neoplasm of breast (principal); Z80.3 Family history of malignant neoplasm of breast; N20.0 Calculus of kidney; K80.20 Calculus of gallbladder without cholecystitis without obstruction
CPT/HCPCS: 74018; 77067

== ENCOUNTER 2019-01-19 07:59 | Outpatient (CLI) | payer MEDICARE, OTHER ==
--- NOTE | 2019-01-20 07:37 | XRAY Report ---
Reason: CALCULUS OF URETER Procedure Date: 01/19/2019 Accession Number: [id number] / [id number] Procedure: XRS - Abdomen 1 View X-Ray CPT Code: 66222 FULL RESULT: EXAM: ABDOMEN RADIOGRAPHY EXAM DATE: 01/19/2019 08:25 AM. CLINICAL HISTORY: Calculus of ureter. COMPARISON: ABDOMEN/PELVIS W/ 12/31/2018 11:05 AM ABDOMEN 1 VIEW 09/08/2015 8:10 AM. TECHNIQUE: 1 view. FINDINGS: Bowel Gas Pattern: Within normal limits. No dilated loops. Other: Left ureteral stent in place which appears unremarkable. Couple of right renal stones again noted measuring up to 8 mm. Cholelithiasis. IMPRESSION: 1. Left ureteral stent in place which appears unremarkable. 2. Couple right renal stones again noted measuring up to 8 mm. 3. Cholelithiasis. RADIA
== END 2019-01-19 08:00 | disposition home or self-care (01) ==
LOC: DI.S 07:59
PROVIDERS: ATTEND Specialist
DX: N20.0 Calculus of kidney (principal); K80.20 Calculus of gallbladder without cholecystitis without obstruction
CPT/HCPCS: 74018

== ENCOUNTER 2019-03-01 11:08 | Outpatient (CLI) | payer MEDICARE, OTHER ==
[2019-03-01 11:20] LABS: BASOPHILS % (AUTO) 0.6 %; EOSINOPHILS # (AUTO) 0.2 10^3/uL (0.0-0.7); EOSINOPHILS % (AUTO) 2.5 %; LYMPHOCYTES # (AUTO) 1.4 10^3/uL (1.5-3.5); LYMPHOCYTES % (AUTO) 18.9 %; MEAN CORPUSCULAR VOLUME 90.8 fL (81.0-99.0); MONOCYTES # (AUTO) 0.5 10^3/uL (0.0-1.0); MONOCYTES % (AUTO) 7.5 %; NEUTROPHILS % (AUTO) 70.1 %; PLT - PLATELET COUNT 239 10^3/uL (130-450); RED BLOOD COUNT 4.67 10^6/uL (4.20-5.40); RED CELL DISTRIBUTION WIDTH 12.5 % (12.0-15.0); WHITE BLOOD COUNT 7.2 x10^3/uL (4.8-10.8)
[2019-03-01 11:39] LABS: ALBUMIN 4.2 g/dL (3.2-5.5); ALBUMIN/GLOBULIN RATIO 1.3 (1.0-2.2); ALKALINE PHOSPHATASE 82 IU/L (42-121); ALT ALANINE AMINOTRANSFERASE 22 IU/L (10-60); AST ASPARTATE AMINOTRANSFERASE 19 IU/L (10-42); BUN - BLOOD UREA NITROGEN 24 mg/dL (6-20); CALCIUM 9.7 mg/dL (8.5-10.3); CARBON DIOXIDE - CO2 28 mmol/L (21-32); CHLORIDE 106 mmol/L (101-111); CHOL/HDL RATIO 4.1 (<4.4); CHOLESTEROL 204 mg/dL; CREATININE 0.7 mg/dL (0.4-1.0); GFR - MDRD 82 (>89); GLUCOSE 114 mg/dL (70-100); HDL CHOLESTEROL 50 mg/dL; LDL CHOLESTEROL,CALCULATED 137 mg/dL; LDL/HDL RATIO 2.7 (<4.4); SODIUM 142 mmol/L (135-145); TOTAL PROTEIN 7.5 g/dL (6.7-8.2); VLDL CHOLESTEROL 17 mg/dL
[2019-03-02 15:42] LABS: HB2 TOTAL 14.3 g/dL; HEMOGLOBIN A1C 0.53 g/dL; HEMOGLOBIN A1C % 5.5 % (4.6-6.2)
== END 2019-03-01 11:09 | disposition home or self-care (01) ==
LOC: LAB 11:08
PROVIDERS: ATTEND Nurse Practitioner
DX: Z00.00 Encounter for general adult medical examination without abnormal findings (principal); N20.0 Calculus of kidney; Z79.899 Other long term (current) drug therapy; R73.9 Hyperglycemia, unspecified; E55.9 Vitamin D deficiency, unspecified; I10 Essential (primary) hypertension; R73.01 Impaired fasting glucose
CPT/HCPCS: 36415; 80053; 80061; 82306; 83036; 83721; 84443; 85025

== ENCOUNTER → 2019-03-02 | Outpatient (CLI) | payer MEDICARE, OTHER ==
[2019-03-12 14:23] LABS: HB2 TOTAL 14.3 g/dL; HEMOGLOBIN A1C 0.53 g/dL; HEMOGLOBIN A1C % 5.5 % (4.6-6.2)
== END ==
LOC: LAB.R 11:17
PROVIDERS: ATTEND Nurse Practitioner
DX: R73.9 Hyperglycemia, unspecified (principal); R73.01 Impaired fasting glucose
CPT/HCPCS: 83036

== ENCOUNTER 2020-01-28 13:09 | Outpatient (CLI) | payer MEDICARE, OTHER ==
--- NOTE | 2020-01-29 14:37 | Mammography Report ---
BILATERAL DIGITAL SCREENING MAMMOGRAM 3D/2D: 01/28/2020 CLINICAL: Routine screening. Comparison is made to exams dated: 12/30/2016 mammogram, 12/30/2015 mammogram, 01/08/2015 mammogram, a nd 11/07/2013 mammogram - [facility]. The tissue of both breasts is heterogeneously dense. This may lower the sensitivity of mammography. No significant masses, calcifications, or other findings are seen in either breast. There has been no significant interval change. IMPRESSION: NEGATIVE There is no mammographic evidence of malignancy. A 1 year screening mammogram is recommended. This exam was interpreted at Station ID: [id number]. NOTE: For mammograms, a report in lay terms will be sent to the patient. Approximately 15% of breast malignancies will not be visualized mammographically. In the management of a palpable breast mass, a negative mammogram must not discourage biopsy of a clinically suspicious lesion. Electronically Signed By: Pramod Veliz M.D. [facility] [place]:01/28/2020 16:12:34 ACR BI-RADS Category 1: Negative 3341F PARENCHYMAL PATTERN: (D) - The breast(s) demonstrate(s) heterogeneously dense fibroglandular mary sommers. BI-RADS CATEGORY: (1) - 1 RECOMMENDATION: (ANNUAL) - Recommend routine annual screening mammography. [id number] 1 year screening LATERALITY: (B)
== END 2020-01-28 13:10 | disposition home or self-care (01) ==
LOC: DI 13:09
PROVIDERS: ATTEND Nurse Practitioner
DX: Z12.31 Encounter for screening mammogram for malignant neoplasm of breast (principal)
CPT/HCPCS: 77063; 77067

== ENCOUNTER 2020-01-28 13:10 | Outpatient (CLI) | payer MEDICARE, OTHER ==
[2020-01-28 14:06] LABS: BASOPHILS % (AUTO) 0.6 %; EOSINOPHILS # (AUTO) 0.2 10^3/uL (0.0-0.7); EOSINOPHILS % (AUTO) 2.5 %; HGB - HEMOGLOBIN 13.8 g/dL (12.0-16.0); LYMPHOCYTES # (AUTO) 1.3 10^3/uL (1.5-3.5); LYMPHOCYTES % (AUTO) 19.4 %; MEAN CORPUSCULAR HEMOGLOBIN 29.6 pg (27.0-31.0); MEAN CORPUSCULAR HGB CONC 33.3 g/dL (32.0-36.0); MEAN CORPUSCULAR VOLUME 89.1 fL (81.0-99.0); MEAN PLATELET VOLUME 9.4 fL (7.9-10.8); MONOCYTES # (AUTO) 0.5 10^3/uL (0.0-1.0); MONOCYTES % (AUTO) 7.4 %; NEUTROPHILS # (AUTO) 4.7 10^3/uL (1.5-6.6); NEUTROPHILS % (AUTO) 69.8 %; PLT - PLATELET COUNT 226 10^3/uL (130-450); RED BLOOD COUNT 4.66 10^6/uL (4.20-5.40); RED CELL DISTRIBUTION WIDTH 12.4 % (12.0-15.0); WHITE BLOOD COUNT 6.8 x10^3/uL (4.8-10.8)
[2020-01-28 14:24] LABS: ALBUMIN 4.3 g/dL (3.2-5.5); ALBUMIN/GLOBULIN RATIO 1.5 (1.0-2.2); ALKALINE PHOSPHATASE 87 IU/L (42-121); ALT ALANINE AMINOTRANSFERASE 13 IU/L (10-60); AST ASPARTATE AMINOTRANSFERASE 14 IU/L (10-42); BUN - BLOOD UREA NITROGEN 18 mg/dL (6-20); CALCIUM 10.1 mg/dL (8.5-10.3); CARBON DIOXIDE - CO2 26 mmol/L (21-32); CHLORIDE 102 mmol/L (101-111); CHOL/HDL RATIO 4.5 (<4.4); CHOLESTEROL 199 mg/dL; CREATININE 0.9 mg/dL (0.4-1.0); GLUCOSE 99 mg/dL (70-100); HDL CHOLESTEROL 44 mg/dL; LDL CHOLESTEROL,CALCULATED 135 mg/dL; LDL/HDL RATIO 3.1 (<4.4); SODIUM 138 mmol/L (135-145); TOTAL PROTEIN 7.2 g/dL (6.7-8.2); VLDL CHOLESTEROL 20 mg/dL
--- NOTE | 2020-01-28 16:28 | DEXA Report ---
PROCEDURE: Dexa Spine and/or Hip INDICATIONS: POST MENOPAUSAL TECHNIQUE: Dual energy x-ray absorptiometry (DXA) was performed on a [employer] System. Regions measur ed are the AP Spine, femoral neck, and if needed forearm. COMPARISON: DEXA 12/30/2015, FINDINGS: Lumbar Spine: Bone Mineral Density 0.958 g/cm/cm,T score -1.9, moderate osteopenia,compared to -1.1/minimal oste openia Left Hip: Bone Mineral Density 0.8 x 3 g/cm/cm,T score -1.2, minimal osteopenia, compared to normal bone muck miner al density. Left Femoral Neck: Bone Mineral Density 0.824 g/cm/cm, T score -1.5, mild osteopenia, compared to -1.1/minimal osteopen ia. (T score greater or equal to -1.0: NORMAL) (T score from -1.1 to -2.4: OSTEOPENIA) (T score less than or equal to -2.5 to: OSTEOPOROSIS) Impression: Osteopenia within the lumbar spine as well as hip and femoral neck, progressive compared to prior exam. Patients with diagnosis of osteoporosis or osteopenia should have regular bone mineral density assess ment. For those eligible for Medicare, routine testing is allowed once every 2 years. Testing frequ ency can be increased for patients who have rapidly progressing disease or for those who are receivin g medical therapy to restore bone mass. Reviewed by: Nora Fowler MD on 01/28/2020 4:26 PM PST Approved by: Nora Fowler MD on 01/28/2020 4:26 PM PST Station ID: [id number]
== END 2020-01-28 13:11 | disposition home or self-care (01) ==
LOC: DI 13:10
PROVIDERS: ATTEND Nurse Practitioner
DX: M85.89 Other specified disorders of bone density and structure, multiple sites (principal); R73.01 Impaired fasting glucose; N20.0 Calculus of kidney; R73.9 Hyperglycemia, unspecified; Z79.899 Other long term (current) drug therapy; E55.9 Vitamin D deficiency, unspecified; M81.0 Age-related osteoporosis without current pathological fracture; I10 Essential (primary) hypertension
CPT/HCPCS: 36415; 77080; 80053; 80061; 83721; 84443; 85025

== ENCOUNTER 2020-07-19 09:04 | Outpatient (CLI) | payer MEDICARE | END 2020-07-19 09:05 | disposition short-term general hospital (02) | LOC: EMS 09:04 | DX: R29.810 Facial weakness (principal); R47.01 Aphasia | CPT/HCPCS: A0425; A0429 ==

== ENCOUNTER 2021-02-01 14:25 | Outpatient (CLI) | payer MEDICARE, OTHER ==
--- NOTE | 2021-02-03 13:47 | Mammography Report ---
BILATERAL DIGITAL SCREENING MAMMOGRAM 3D/2D: 02/01/2021 CLINICAL: Family history of breast cancer. Comparison is made to exams dated: 01/28/2020 mammogram, 12/30/2016 mammogram, 12/30/2015 mammogram, mammogram, 11/07/2013 mammogram, and 11/27/2013 mammogram - [facility]. The tissue of both breasts is heterogeneously dense. This may lower the sensitivity of mammography. No significant masses, calcifications, or other findings are seen in either breast. There has been no significant interval change. IMPRESSION: NEGATIVE There is no mammographic evidence of malignancy. A 1 year screening mammogram is recommended. This exam was interpreted at Station ID: [id number]. NOTE: For mammograms, a report in lay terms will be sent to the patient. Approximately 15% of breast malignancies will not be visualized mammographically. In the management of a palpable breast mass, a negative mammogram must not discourage biopsy of a clinically suspicious lesion. Electronically Signed By: Dario Allen M.D., jr/gisele:02/02/2021 10:11:48 ACR BI-RADS Category 1: Negative 3341F PARENCHYMAL PATTERN: (D) - The breast(s) demonstrate(s) heterogeneously dense fibroglandular mary sommers. BI-RADS CATEGORY: (1) - 1 RECOMMENDATION: (ANNUAL) - Recommend routine annual screening mammography. 20220202 1 year screening LATERALITY: (B)
== END 2021-02-01 14:26 | disposition home or self-care (01) ==
LOC: DI.S 14:25
PROVIDERS: ATTEND Internal Medicine
DX: Z12.31 Encounter for screening mammogram for malignant neoplasm of breast (principal); Z80.3 Family history of malignant neoplasm of breast